=== PATIENT | male | born 1950 | race Caucasian/White ===

== ENCOUNTER 2016-03-29 09:44 | Inpatient (IN) | payer MEDICARE, OTHER ==
[~2016-03-29] VITALS: Ht 162.6 cm; Wt 78.0 kg
[~2016-03-29 09:44] MED LIST: BUPR300T48 PO; PARO30TA48 PO; QUET300T13 PO
[2016-03-29] MEDS ORDERED: ONDANSETRON (ODT) 4 MG TAB ODT STA (15:49)
[2016-03-29] MEDS ORDERED: OXYCODONE/ACETAMINOPHEN (5/325) TAB PO ONE (16:00)
--- NOTE | 2016-03-29 16:38 | RADRPT ---
PROCEDURE: XR Left Shoulder. CLINICAL INDICATION: Trauma due to a fall. Left shoulder pain. TECHNIQUE: 3 views. Frontal internal rotation and frontal external rotation. Scapular Y-view. COMPARISON: Images of the right shoulder dated 09/02/2015 which demonstrated a anterior inferior d islocation. FINDINGS: There is no acute fracture. There is grade II acromioclavicular joint separation. There may be a H ill-Sachs deformity of the humeral head indicating prior dislocation. There is no acute dislocation . The articular surfaces are otherwise intact. The soft tissues are unremarkable. There is no lytic or blastic lesion. There is no radiopaque foreign body. IMPRESSION: 1. Grade II acromioclavicular joint separation. 2. Possible [place]-Sachs deformity. 3. Otherwise unremarkable images of the left shoulder. RPTAT: QQ .Jordin Mendoza MD, Date Time Electronically viewed and signed by .Jordin Mendoza MD, on 03/29/2016 16:38 .R/
--- NOTE | 2016-03-29 17:03 | RADRPT ---
PROCEDURE: CT Brain without contrast. CLINICAL INDICATION: Trauma due to a fall. Headache. TECHNIQUE: A CT of the brain without contrast was performed utilizing axial sections from the skul l base through the vertex. The patient was scanned without intravenous contrast enhancement. Sagitta l and coronal reformatted images were obtained using the data from the axial images. Total exam DLP is 720.23 mGy-cm. CTDIvol is 44.33 mGy. One or more of the following dose reduction techniques we re used: Automated exposure control, adjustment of the mA and/or kV according to patient size, use o f iterative reconstruction technique. COMPARISON: Noncontrast CT scan of the brain dated 02/03/2016. FINDINGS: There is normal thompson-white matter differentiation. There is enlargement of the ventricles and subarachnoid spaces consistent with atrophy. There is decreased attenuation of the periventricular white matter consistent with microangiopathic ischemic change. There is a small old infarct in the left cerebellar hemisphere posteriorly, unchang ed. There is no evidence of recent infarct. There is no intracranial hemorrhage or space-occupying lesion. There are vascular calcifications consistent with atherosclerosis. There is no skull fracture or lytic lesion. There is opacification bilaterally in the maxillary sin uses. There may be fractures of the medial wolf of the orbits, unchanged. IMPRESSION: 1. Atrophy. 2. Microangiopathic ischemic change. 3. Atherosclerosis. 4. Old left cerebellar hemisphere infarct, unchanged. 5. Opacification in the maxillary sinuses bilaterally. 6. Old defects of the bilateral medial wall of the orbits. 7. No intracranial hemorrhage. 8. Otherwise unremarkable noncontrast CT scan of the brain. RPTAT: QQ .Jordin Mendoza MD, Date Time Electronically viewed and signed by .Jordin Mendoza MD, on 03/29/2016 17:02 .R/
--- NOTE | 2016-03-29 17:04 | RADRPT ---
PROCEDURE: CT Cervical Spine without contrast. CLINICAL INDICATION: Fall, pain TECHNIQUE: Multiple axial cuts through the cervical spine with coronal and sagittal reformats were obtained without contrast. The calculated radiation dose measures 475 mGy centimeters. The CTDI malick sures 22 mGy COMPARISON: No prior studies are available for comparison. FINDINGS: There is a normal cervical lordosis. There is no evidence of subluxation. There is normal height of the vertebral bodies. There is a normal cervical lordosis. There is mild retrolisthesis at C3-C4, 2 mm, which appears degenerative. There is moderate to severe disk space narrowing at C6-C7, and mo derate disk space narrowing at C3-C4. Vertebral body heights are maintained. There is no evidence for acute fracture. The atlantoaxial articulation displays moderate degenerative change.. There is normal craniocervica l alignment. C2-3: There is a minimal broad-based disk protrusion. There is moderate bilateral facet hypertrophy . There is minimal central canal stenosis. There is minimal bilateral bony foraminal stenosis.. C3-4: There is a mild retrolisthesis. There is bilateral uncovertebral hypertrophy. There is moder ate bilateral facet hypertrophy. There is a minimal disk osteophyte complex. There is moderate to severe appearing central canal stenosis with AP canal diameter measuring 7 mm. There is moderate to severe bilateral bony foraminal stenosis.. C4-5: There is a minimal disk osteophyte complex and bilateral uncovertebral hypertrophy. There is severe bilateral facet hypertrophy. There is mild ligamentum flavum buckling. There is mild centra l canal stenosis with AP canal diameter measuring 8 mm. There is severe bilateral foraminal stenosi s.. C5-6: There is a mild broad-based disk protrusion. There is right uncovertebral hypertrophy. There is moderate to severe bilateral facet hypertrophy. There is no bony central canal stenosis. There is mild to moderate left and moderate to severe right bony foraminal stenosis.. C6-7: There is a mild disk osteophyte complex, 3 mm. There is mild to moderate bilateral facet hyp ertrophy. There is no bony central canal stenosis. There is minimal bilateral bony foraminal steno sis.. C7-T1: There is no gross disk abnormality. There is moderate bilateral facet hypertrophy. There is no bony central canal stenosis. There is minimal bilateral bony foraminal stenosis.. There is no abnormal paravertebral soft tissue mass. IMPRESSION: 1. Mild retrolisthesis at C3-C4, 2 mm, which appears degenerative. 2. No visualized acute fracture or dislocation. 3. Mild disk osteophyte complexes at C5-C6 and C6-C7. Minimal disk osteophyte complexes at C2-C3 t hrough C4-C5. 4. Bony central canal stenosis, which appears moderate to severe at C3-C4, related to listhesis and disk osteophyte complex. Mild appearing central canal stenosis at C4-C5. 5. Uncovertebral hypertrophy as noted from C3-C4 through C5-C6. Multilevel moderate and severe facet hypertrophy. Associated neural foraminal stenosis, with moderate to severe and severe involvement as noted from C3-C4 through C5-C6. RPTAT: DD .Fito Evans MD, Date Time Electronically viewed and signed by .Fito Evans MD, on 03/29/2016 17:03 .T/
--- NOTE | 2016-03-29 17:51 | ERA ---
ER Documentation Chief Complaint Date/Time DATE: 03/29/16 TIME: 17:44 Chief Complaint bilateral hand swelling from a fall about 1 week. no deformity HPI Patient is a 66-year-old male who fell out of his wheelchair earlier today. He states he hit his head and is having some head pain as well as left shoulder pain. He is wheelchair-bound from a prior stroke. He is not sure if he lost consciousness when he hit his head. He denies any chest pain or shortness of breath. Denies any abdominal pain or flank or back pain. Denies any bruising lacerations or abrasions. He denies any recent illnesses such as fever, coughing, or congestion. Of note the patient is homeless. ROS All systems reviewed and are negative except as per history of present illness. Medications Home Meds Reported Medications Paroxetine Hcl* (Paxil*) 30 Mg Tablet, 30 MG PO HS, TAB 12/16/13 Quetiapine Fumarate* (Seroquel*) 300 Mg Tablet, 300 MG PO HS, TAB 12/16/13 Discontinued Reported Medications Bupropion Hcl* (Wellbutrin XL*) 300 Mg Tab.sr.24h, 300 MG PO QAM, TAB.SA 12/16/13 Allergies Allergies: Coded Allergies: No Known Allergy (Verified , 03/29/16) PMhx/Soc History of Surgery: Yes (abd from"accident," L shoulder, "broke both feet") Anesthesia Reaction: No Hx Neurological Disorder: No Hx Respiratory Disorders: No Hx Cardiac Disorders: Yes (htn) Hx Psychiatric Problems: Yes (bipolar, DEPRESSION, HEARS VOICES (schizophrenia) , anxiety) Hx Miscellaneous Medical Probl: No Hx Alcohol Use: Yes ("3 beers everyday") Hx Substance Use: Yes (MARIJUANA - 1 WEEK AGO, COCAINE - LONG TIME AGO) Hx Tobacco Use: Yes Smoking Status: Current every day smoker FmHx Family History: No diabetes Physical Exam Vitals Vital Signs Date Time Temp Pulse Resp B/P Pulse Ox O2 Delivery O2 Flow Rate FiO2 03/29/16 09:47 98.5 88 20 135/78 95 Physical Exam Const: Well-developed well-nourished male lying on the bed in no acute distress, unkempt, appears chronically ill Head: Atraumatic normocephalic Eyes: Normal Conjunctiva ENT: Normal External Ears, Nose and Mouth. Neck: Full range of motion..~ No meningismus. Resp: Clear to auscultation bilaterally Cardio: Regular rate and rhythm, no murmurs Abd: Soft, non tender, non distended. Normal bowel sounds Skin: No petechiae or rashes Back: No midline or flank tenderness Ext: No cyanosis, or edema, patient has tenderness to palpation of the left proximal humerus with decreased range of motion, no obvious bony deformity noted Neur: Awake and alert oriented 3, patient has notable weakness of the left upper extremity which appears to be from a prior stroke, GCS equals 15 Psych: Normal Mood and Affect Results 24 hrs Current Medications Medications (Trade) Dose Ordered Sig/Minnie Route PRN Reason Start Time Stop Time Status Last Admin Dose Admin Oxycodone/ Acetaminophen (Percocet (5/ 325)) 2 tab ONCE ONCE PO 03/29/16 16:00 03/29/16 16:01 DC 03/29/16 16:00 Ondansetron HCl (Zofran Odt) 4 mg ONCE STAT ODT 03/29/16 15:49 03/29/16 15:51 DC 03/29/16 15:49 Departure Diagnosis: Primary Impression: Fall Qualified Code: W19.XXXA - Fall, initial encounter Additional Impressions: Acromioclavicular joint separation, type 2 Qualified Code: S43.102A - Acromioclavicular joint separation, type 2, left, initial encounter CVA, old, hemiparesis Condition: DORIS Gifford Mar 29, 2016 17:51
[2016-03-29] MEDS ORDERED: hydrALAzine 20 MG INJ IV PRN (18:30)
[2016-03-29] MEDS ORDERED: NA PHOSPHATE/BIPHOS 133 ML ENEMA PR PRN (18:30)
[2016-03-29] MEDS ORDERED: ACETAMINOPHEN 325 MG TAB PO PRN (18:30)
[2016-03-29] MEDS ORDERED: LORAZEPAM 2 MG INJ IV PRN (18:30)
[2016-03-29] MEDS ORDERED: DOCUSATE SODIUM 100 MG CAP PO PRN (18:30)
[2016-03-29] MEDS ORDERED: ONDANSETRON 4 MG INJ IV PRN (18:30)
[2016-03-29] MEDS ORDERED: NACL 0.9% 3 ML SYG IV SCH (18:30)
[2016-03-29] MEDS ORDERED: NITROGLYCERIN (SL) 0.4 MG TAB SL PRN (18:30)
[2016-03-29] MEDS ORDERED: MAGNESIUM HYDROXIDE 30ML CUP PO PRN (18:30)
[2016-03-29] MEDS ORDERED: ALBUTEROL/IPRATROPIUM (NEB) 3 ML AMP HHN PRN (18:30)
[2016-03-29 20:13] VITALS: TEMP 98.2
[2016-03-29] MEDS ORDERED: HEPARIN 5,000 UNIT/0.5 ML SYG SC SCH (21:00)
[2016-03-29] MEDS: QUETIAPINE 100 MG TAB PO SCH (21:17)
[2016-03-29] MEDS: HYDROCODONE/APAP (5/325) TAB PO PRN (21:17)
[2016-03-29 21:30] VITALS: BP 124/59; Ht 162.6 cm; Wt 78.0 kg
[2016-03-29] MEDS: SOD CHLORIDE 0.45% 1,000 ML IV SCH (22:00)
[2016-03-29] MEDS: PAROXETINE 10 MG TAB PO SCH (22:38)
[2016-03-30 06:33] LABS: CHOL/HDL RATIO 5.7 RATIO
[2016-03-30 06:36] LABS: BASOPHILS % 0.3 % (0.0-2.0); EOSINOPHILS # 0.1 10^3/ul (0.0-0.5); EOSINOPHILS % 1.2 % (0.0-7.0); HEMATOCRIT 34.8 % (42.0-52.0); HEMOGLOBIN 11.8 g/dl (14.0-18.0); LYMPHOCYTES % 11.1 % (15.0-51.0); MEAN CORPUSCULAR HEMOGLOBIN 31.2 pg (29.0-33.0); MEAN CORPUSCULAR HGB CONC 33.8 g/dl (32.0-37.0); MEAN CORPUSCULAR VOLUME 92.3 fl (82.0-101.0); MEAN PLATELET VOLUME 9.7 fl (7.4-10.4); NEUTROPHIL # 7.2 10^3/ul (1.6-7.5); NEUTROPHILS % 76.4 % (39.0-77.0); PLATELET COUNT 235 10^3/UL (140-440); RED BLOOD COUNT 3.77 10^6/ul (4.70-6.10); RED CELL DISTRIBUTION WIDTH 15.2 % (11.5-14.5); UNCORRECTED WBC 9.4 10^3/ul (4.8-10.8); WHITE BLOOD COUNT 9.4 10^3/ul (4.8-10.8)
[2016-03-30 06:43] LABS: CONDITION 1; LH ANALYZER COMMENTS 1
[2016-03-30 07:12] LABS: THYROID STIMULATING HORMONE 1.62 MIU/L (0.465-4.680)
[2016-03-30] MEDS: SOD CHLORIDE 0.45% 1,000 ML IV SCH ×2 (07:31→20:51)
[2016-03-30] MEDS: PANTOPRAZOLE 40 MG INJ IV SCH (07:34)
[2016-03-30 07:40] LABS: CREATININE 0.92 mg/dl (0.61-1.24)
[2016-03-30 07:41] LABS: CALCIUM 7.9 mg/dl (8.4-10.2); MAGNESIUM 1.8 mg/dl (1.7-2.5); PHOSPHORUS 5.8 mg/dl (2.5-4.9)
[2016-03-30] MEDS: CHLORDIAZEPOXIDE 5 MG CAP PO SCH ×3 (10:11→21:20)
[2016-03-30] MEDS: MULTIVITAMINS 10 ML, THIAMINE 100 MG, FOLIC ACID 1 MG in SOD CHLORIDE 0.9% 1,000 ML IVPB SCH (10:14)
--- NOTE | 2016-03-30 13:56 | HP ---
DATE OF ADMISSION: 03/29/2016 TIME: 7:45 a.m. CHIEF COMPLAINT: Fall. 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 The patient presents with a fall from his wheelchair. He stat es that he hit his head and also landed on his left shoulder. The patient was not sure if he lost co nsciousness when he hit his head. He has no other complaints at this time. He states that his last drink was yesterday. He says he lives in a [place] and that he is wheelchair bound. PAST MEDICAL HISTORY: As per HPI. HOME MEDICATIONS: 1. Paxil. 2. Seroquel. ALLERGIES: NO KNOWN DRUG ALLERGIES. FAMILY HISTORY: Denies. SOCIAL HISTORY: The patient drinks daily, drinks approximately 3 beers daily. He does use marijuan a and has used cocaine in the past. He is a daily smoker. REVIEW OF SYSTEMS: A 12-point review of systems is difficult to obtain as the patient is confused, otherwise negative except that discussed in the HPI. PHYSICAL EXAMINATION: VITAL SIGNS: Temperature is 98.2, pulse 105, respiratory rate is 20, BP is 124/59, ____% on room ai r. GENERAL: No acute distress, alert. He is oriented to his name, but not to where exactly he is and what year it is. HEENT: Normocephalic, atraumatic. LUNGS: Clear to auscultation. CARDIOVASCULAR: Regular rate and rhythm. ABDOMEN: Nondistended, nontender, soft. EXTREMITIES: No clubbing, cyanosis, or edema. LABORATORIES: White count 9.4, hemoglobin 11.8, platelets are 235. Chemistry within normal limits except for potassium of 3.0, phosphorus level elevated at 5.8. DIAGNOSTICS: Shoulder x-ray shows grade II, AC joint separation, possible [place]-Sachs deformity, ot herwise unremarkable images of the left shoulder. Cervical spine CT shows mild retrolisthesis at C3-C4 which appears degenerative. No visualized acut e fracture or dislocation, mild distal ____ C5-C6, C6-C7. Bony central canal stenosis appears moder ate to severe at C3-C4. Hypertrophy is noted at C3-C4, C4-C5, and C5-C6, associated neural foramina l stenosis and moderate to severe ____noted from C3 to C4 and C5 through C6. CT brain shows atrophy, microangiopathic ischemic changes, atherosclerosis, old left cerebellar and hemisphere infarct, unchanged; opacification of maxillary sinuses, old defects in the bilateral medi al wall of the orbits, no intracranial hemorrhage. Otherwise, unremarkable CT of the brain. ASSESSMENT AND PLAN: 1. Fall with acromioclavicular joint separation. The patient had a sling placed in the ER. The pat tyra's fall is likely secondary to his alcohol abuse and his history of subdural hematomas. There i s no acute ____on CT of the brain. The patient will need a social work consult and case reviewer irina bowling for possible placement. 2. Alcohol abuse. The patient's last drink was yesterday. We will give the patient a banana bag, L ibrium and Ativan p.r.n. 3. Homelessness. Case management consultation. 4. History of bipolar disorder and schizophrenia. 5. History of subdural hematomas from falls. Subdural hematoma was noted on CT brain at this time. 6. Prophylaxis. SCDs. Dictated By: MARIA E BABIN MD BS/TALYA Conf#: [id number] DID#: [id number]
[2016-03-30] MEDS ORDERED: POTASSIUM CHLORIDE 250 ML IVPB ONE (14:00)
[2016-03-30] MEDS: HYDROCODONE/APAP (5/325) TAB PO PRN ×2 (14:39→21:21)
[2016-03-30] MEDS: PAROXETINE 10 MG TAB PO SCH (21:20)
[2016-03-30] MEDS: QUETIAPINE 100 MG TAB PO SCH (21:21)
[2016-03-31] MEDS: LORAZEPAM 2 MG INJ IV PRN ×2 (03:41→15:02)
[2016-03-31] MEDS: PANTOPRAZOLE 40 MG INJ IV SCH (05:24)
[2016-03-31] MEDS: SOD CHLORIDE 0.45% 1,000 ML IV SCH ×2 (06:57→23:31)
[2016-03-31 08:20] VITALS: BP 163/98; PULSE 116; RESP 18
[2016-03-31 08:20] LABS: BASOPHILS % 0.3 % (0.0-2.0); EOSINOPHILS # 0.1 10^3/ul (0.0-0.5); EOSINOPHILS % 2.5 % (0.0-7.0); HEMATOCRIT 32.8 % (42.0-52.0); HEMOGLOBIN 11.2 g/dl (14.0-18.0); LYMPHOCYTES # 1.3 10^3/ul (0.8-2.9); LYMPHOCYTES % 23.2 % (15.0-51.0); MEAN CORPUSCULAR HEMOGLOBIN 31.1 pg (29.0-33.0); MEAN CORPUSCULAR HGB CONC 34.3 g/dl (32.0-37.0); MEAN CORPUSCULAR VOLUME 90.7 fl (82.0-101.0); MEAN PLATELET VOLUME 8.7 fl (7.4-10.4); MONOCYTE # 0.7 10^3/ul (0.3-0.9); MONOCYTES % 12.7 % (0.0-11.0); NEUTROPHIL # 3.4 10^3/ul (1.6-7.5); NEUTROPHILS % 61.3 % (39.0-77.0); PLATELET COUNT 223 10^3/UL (140-440); RED BLOOD COUNT 3.61 10^6/ul (4.70-6.10); RED CELL DISTRIBUTION WIDTH 15.3 % (11.5-14.5); UNCORRECTED WBC 5.5 10^3/ul (4.8-10.8); WHITE BLOOD COUNT 5.5 10^3/ul (4.8-10.8)
[2016-03-31] MEDS: MULTIVITAMINS 10 ML, THIAMINE 100 MG, FOLIC ACID 1 MG in SOD CHLORIDE 0.9% 1,000 ML IVPB SCH (08:21)
[2016-03-31] MEDS: CHLORDIAZEPOXIDE 5 MG CAP PO SCH ×3 (08:22→21:10)
[2016-03-31 08:24] LABS: POTASSIUM 3.3 mmol/L (3.5-5.1)
[2016-03-31 08:27] LABS: CONDITION 1; CREATININE 0.55 mg/dl (0.61-1.24); LH ANALYZER COMMENTS 1
--- NOTE | 2016-03-31 10:23 | PN ---
DATE: 03/30/2016 SUBJECTIVE: No acute events overnight. The patient presently eating. OBJECTIVE VITAL SIGNS: Stable. GENERAL: The patient is sitting up in bed eating, in no acute distress. HEENT: Pupils equal, round, reactive to light. Extraocular muscles intact. NECK: Supple, no thyromegaly. LUNGS: Clear to auscultation bilaterally. CARDIOVASCULAR: S1, S2 heard, no rubs or gallops. ABDOMEN: Soft, nontender, nondistended. Normal bowel sounds. No rebound or guarding. MUSCULOSKELETAL: His left upper extremity: Still tenderness to palpation in the left proximal steffen [place], decreased range of motion of the left upper extremity. A sling is in place. No lower extremit y edema bilaterally. NEUROLOGIC: No focal deficits. LABORATORY DATA: His basic metabolic panel is normal except his potassium is a little low at 3.0. CBC is normal. ASSESSMENT AND PLAN: This is a 66-year-old male with prior history of hypertension, stroke, depress ion and possible bipolar disorder who fell out of a wheelchair yesterday, status post fall with left upper extremity AC joint grade II separation, now with sling placement. 1. Left shoulder pain, again secondary to fall. He has got an AC joint separation, type II. We wi ll continue to monitor for now. Continue brace. Consider orthopedic consult, although does not messi ear patient need any surgical intervention at this time. Continue pain control medications as well. 2. History of old stroke. Again, head CT was negative after patient suffered a fall. Continue to monitor for now. There was an old left cerebellar hemispheric infarct noted, but again no acute fin dings. 3. Psychiatric history. Again, history of possible schizophrenia and bipolar disorder. Continue t o monitor for now. The patient does take Seroquel and Paxil at home. We will continue those for no w. 4. History of questionable ethanol abuse in the past. No signs of any active withdrawal, but he is homeless. We will check an ethanol and drug screen level. Put him on low-dose Librium for now wit h banana bag. Continue to monitor for signs of withdrawal. 5. Gastrointestinal prophylaxis Proton pump inhibitor. 6. Deep venous thrombosis prophylaxis. He is on sequential compression devices. We will continue to follow. Dictated By: GERBER HERNANDEZ Conf#: [id number] DID#: [id number]
[2016-03-31] MEDS ORDERED: POTASSIUM CHLORIDE 250 ML IVPB ONE (10:30)
--- NOTE | 2016-03-31 10:38 | PN ---
Date/Time of Note Date/Time of Note DATE: 03/31/16 TIME: 10:36 Assessment/Plan VTE Prophylaxis VTE Prophylaxis Intervention: SCD's Lines/Catheters IV Catheter Type (from Nrs): Peripheral IV Assessment/Plan Chief Complaint/Hosp Course ASSESSMENT AND PLAN: 66-year-old male with prior history of hypertension, stroke, depression and possible bipolar disorder who fell out of a wheelchair yesterday, status post fall with left upper extremity AC joint grade II separation, now with sling placement. 1. Left shoulder pain - again secondary to fall. He has got an AC joint separation, type II. - continue to monitor for now, continue brace. - will consult orthopedic team as well, although does not appear patient need any surgical intervention at this time. - Continue pain control medications as well. 2. History of old stroke. Again, head CT was negative after patient suffered a fall. There was an old left cerebellar hemispheric infarct noted, but again no acute findings. - Continue to monitor for now. 3. Psychiatric history. Again, history of possible schizophrenia and bipolar disorder. - Continue Seroquel and Paxil meds. We will continue those for now. 4. History of questionable ethanol abuse in the past - shwoing possible signs of withdrawal now. - f/u ethanol and drug screen level. - continue low-dose Librium for now with banana bag. - Continue to monitor for signs of withdrawal. 5. Gastrointestinal prophylaxis Proton pump inhibitor. 6. Deep venous thrombosis prophylaxis. He is on sequential compression devices. We will continue to follow. Problems: Subjective 24 Hr Interval Summary Free Text/Dictation Pt more agitated yesterday, 1:[address] now[address] Exam/Review of Systems Vital Signs Vitals Vital Signs Date Time Temp Pulse Resp B/P Pulse Ox O2 Delivery O2 Flow Rate FiO2 03/31/16 08:20 98.7 116 18 163/98 95 Room Air Intake and Output 03/30/16 03/30/16 03/31/16 15:00 23:00 07:00 Intake Total 500 ml 1750 ml 900 ml Output Total 300 ml 1000 ml Balance 500 ml 1450 ml -100 ml Exam GENERAL: The patient is sleeping, in no acute distress presently. HEENT: Pupils equal, round, reactive to light. Extraocular muscles intact. NECK: Supple, no thyromegaly. LUNGS: Clear to auscultation bilaterally. CARDIOVASCULAR: S1, S2 heard, no rubs or gallops. ABDOMEN: Soft, nontender, nondistended. Normal bowel sounds. No rebound or guarding. MUSCULOSKELETAL: His left upper extremity: Still tenderness to palpation in the left proximal humerus, decreased range of motion of the left upper extremity. A sling is in place. No lower extremity edema bilaterally. NEUROLOGIC: No focal deficits. Results Result Diagram: 03/31/16 0758 03/31/16 0758 Results 24 hrs Laboratory Tests Test 03/31/16 07:58 Anion Gap 13 Basophils # 0.0 Basophils % 0.3 Blood Morphology Comment Blood Urea Nitrogen 9 Calcium Level 8.0 L Carbon Dioxide Level 27 Chloride Level 103 Creatinine 0.55 L Eosinophils # 0.1 Eosinophils % 2.5 Glucose Level 100 Hematocrit 32.8 L Hemoglobin 11.2 L Lymphocytes # 1.3 Lymphocytes % 23.2 Mean Corpuscular Hemoglobin 31.1 Mean Corpuscular Hemoglobin Concent 34.3 Mean Corpuscular Volume 90.7 Mean Platelet Volume 8.7 Monocytes # 0.7 Monocytes % 12.7 H Neutrophils # 3.4 Neutrophils % 61.3 Nucleated Red Blood Cells # 0.0 Nucleated Red Blood Cells % 0.0 Platelet Count 223 Potassium Level 3.3 L Red Blood Count 3.61 L Red Cell Distribution Width 15.3 H Sodium Level 140 White Blood Count 5.5 # Medications Medications Current Medications Ondansetron HCl (Zofran Inj) 4 mg Q6H PRN IV NAUSEA AND/OR VOMITING; Start 03/29 at 18:30 Acetaminophen (Tylenol Tab) 650 mg Q6H PRN PO PAIN LEVEL 1-3 OR FEVER; Start at 18:30 Acetaminophen/ Hydrocodone Bitart ([place] (5/325)) 1 tab Q6H PRN PO MODERATE PAIN LEVEL 4-6 Last administered on 03/30/16t 21:21; Admin Dose 1 TAB; Start 03/29 at 18:30 Morphine Sulfate (morphine) 2 mg Q4H PRN IV SEVERE PAIN LEVEL 7-10; Start at 18:30 Docusate Sodium (Colace) 100 mg Q12H PRN PO CONSTIPATION; Start 03/29/16 at 18: 30 Magnesium Hydroxide (Milk Of Mag) 30 ml DAILY PRN PO CONSTIPATION; Start at 18:30 Sodium Biphosphate/ Sodium Phosphate (Fleet Enema) 133 ml DAILY PRN [place] CONSTIPATION; Start 03/29/16 at 18:30 Pantoprazole 40 mg 40 mg DAILY@06 IV Last administered on 03/31/16 05:24; Admin Dose 40 MG; Start 03/30/16 at 06:00 Sodium Chloride (1/2 NS) 1,000 ml @ 75 mls/hr [id number] IV Last administered on 03/31/16 06:57; Admin Dose 75 MLS/HR; Start 03/29/16 at 18:11 Hydralazine HCl (Apresoline) 10 mg Q6H PRN IV ELEVATED BLOOD PRESSURE; Start at 18:30 Clonidine (Catapres) 0.1 mg Q6H PRN PO ELEVATED BLOOD PRESSURE; Start 03/29/16 at 18:30 Nitroglycerin (Nitroglycerin (Sl Tab) 0.4 Mg) 1 tab Q5M PRN SL ANGINA; Start at 18:30 Paroxetine HCl (Paxil) 30 mg HS PO Last administered on 03/30/16 21:20; Admin Dose 30 MG; Start 03/29/16 at 21:00 Quetiapine Fumarate (Seroquel) 300 mg HS PO Last administered on 03/30/16 21:21 ; Admin Dose 300 MG; Start 03/29/16 at 21:00 Lorazepam (Ativan) 1 mg Q4H PRN IV CONTROL WITHDRAWAL SYMPTOMS Last administered on 03/31/16 03:41; Admin Dose 1 MG; Start 03/30/16 at 09:00 Chlordiazepoxide 10 mg 10 mg TID PO Last administered on 03/31/16 08:22; Admin Dose 10 MG; Start 03/30/16 at 09:00 Multivitamins 10 ml/Thiamine HCl 100 mg/Folic Acid 1 mg/Sodium Chloride 1,011.2 ml @ 125 mls/ hr DAILY@09 IVPB Last administered on 03/31/16 08:21; Admin Dose 125 MLS/HR; Start 03/30/16 at 10:00; Stop 04/01/16 at 17:06 Potassium Chloride (KCl 40 MEQ/250 ML NS) 250 ml @ 62.5 mls/hr ONCE ONCE IVPB ; Start 03/31/16 at 10:30; Stop 03/31/16 at 14:29 GERBER JOSEPH Mar 31, 2016 10:38
[2016-03-31] MEDS ORDERED: POTASSIUM CHLORIDE (SR) 20 MEQ TAB PO STA (10:39)
[2016-03-31] MEDS: HYDROCODONE/APAP (5/325) TAB PO PRN ×2 (11:42→21:19)
[2016-03-31] MEDS: morphine 2 MG INJ IV PRN (17:17)
[2016-03-31 19:47] VITALS: BP 196/96; RESP 20
[2016-03-31] MEDS: PAROXETINE 10 MG TAB PO SCH (21:10)
[2016-03-31] MEDS: QUETIAPINE 100 MG TAB PO SCH (21:10)
[2016-03-31 21:28] VITALS: BP 181/101; PULSE 113
[2016-03-31 21:45] VITALS: BP 168/89; RESP 20
[2016-03-31 22:00] VITALS: BP 164/83; RESP 20
[2016-04-01] MEDS: SOD CHLORIDE 0.45% 1,000 ML IV SCH (03:25)
[2016-04-01] MEDS: PANTOPRAZOLE 40 MG INJ IV SCH (05:40)
[2016-04-01 05:58] LABS: BASOPHILS % 0.4 % (0.0-2.0); EOSINOPHILS # 0.1 10^3/ul (0.0-0.5); EOSINOPHILS % 2.5 % (0.0-7.0); HEMATOCRIT 37.2 % (42.0-52.0); HEMOGLOBIN 12.4 g/dl (14.0-18.0); LYMPHOCYTES # 1.5 10^3/ul (0.8-2.9); LYMPHOCYTES % 26.6 % (15.0-51.0); MEAN CORPUSCULAR HEMOGLOBIN 30.8 pg (29.0-33.0); MEAN CORPUSCULAR HGB CONC 33.4 g/dl (32.0-37.0); MEAN CORPUSCULAR VOLUME 92.1 fl (82.0-101.0); MONOCYTE # 0.7 10^3/ul (0.3-0.9); MONOCYTES % 12.7 % (0.0-11.0); NEUTROPHIL # 3.3 10^3/ul (1.6-7.5); NEUTROPHILS % 57.8 % (39.0-77.0); PLATELET COUNT 296 10^3/UL (140-440); RED BLOOD COUNT 4.04 10^6/ul (4.70-6.10); RED CELL DISTRIBUTION WIDTH 15.4 % (11.5-14.5); UNCORRECTED WBC 5.6 10^3/ul (4.8-10.8); WHITE BLOOD COUNT 5.6 10^3/ul (4.8-10.8)
[2016-04-01 06:01] LABS: CONDITION 1; LH ANALYZER COMMENTS 1
[2016-04-01 06:20] LABS: POTASSIUM 3.5 mmol/L (3.5-5.1)
[2016-04-01 06:22] LABS: CREATININE 0.49 mg/dl (0.61-1.24); MAGNESIUM 1.6 mg/dl (1.7-2.5); PHOSPHORUS 3.9 mg/dl (2.5-4.9)
[2016-04-01 06:23] LABS: CALCIUM 8.2 mg/dl (8.4-10.2)
[2016-04-01] MEDS: MULTIVITAMINS 10 ML, THIAMINE 100 MG, FOLIC ACID 1 MG in SOD CHLORIDE 0.9% 1,000 ML IVPB SCH (09:06)
[2016-04-01] MEDS: CHLORDIAZEPOXIDE 5 MG CAP PO SCH ×3 (11:23→20:27)
[2016-04-01] MEDS: morphine 2 MG INJ IV PRN (16:31)
--- NOTE | 2016-04-01 19:11 | OPR ---
DATE OF OPERATION: 04/01/2016 CHIEF COMPLAINT: Left shoulder pain. HISTORY: The patient is a 66-year-old male who fell from his wheelchair, left shoulder pain. Pain, swelling noted in the left shoulder, difficulty raising the hand. PHYSICAL EXAMINATION: On examination, skin intact. Neurovascular status intact. Compartments are soft. X-rays show separation of the AC joint on the left with no apparent fracture of the shoulder or disl ocation. Patient will be managed conservatively. Ice and an arm sling. Pain management. No further evaluat ion is anticipated. A short course of physical therapy may be necessary in the next several weeks. I will be happry to see the patient again upon request. Dictated By: MON[place] CHUNG/TALYA Conf#: [id number] DID#: [id number]
--- NOTE | 2016-04-01 19:24 | PN ---
Date/Time of Note Date/Time of Note DATE: 04/01/16 TIME: 19:20 Assessment/Plan VTE Prophylaxis VTE Prophylaxis Intervention: SCD's Lines/Catheters IV Catheter Type (from Nrs): Peripheral IV Urinary Cath still in place: No Assessment/Plan Assessment/Plan 66-year-old male with prior history of hypertension, stroke, depression and possible bipolar disorder who fell out of a wheelchair yesterday, status post fall with left upper extremity AC joint grade II separation, now with sling placement. 1. Left shoulder pain - again secondary to fall. He has got an AC joint separation, type II. - continue to monitor for now, continue brace. - will consult orthopedic team as well, although does not appear patient need any surgical intervention at this time. - Continue pain control medications as well. 2. History of old stroke. Again, head CT was negative after patient suffered a fall. There was an old left cerebellar hemispheric infarct noted, but again no acute findings. - Continue to monitor for now. 3. Psychiatric history. Again, history of possible schizophrenia and bipolar disorder. - Continue Seroquel and Paxil meds. We will continue those for now. 4. History of questionable ethanol abuse in the past - showing possible signs of withdrawal now. - continue low-dose Librium for now with banana bag. - Continue to monitor for signs of withdrawal. 5. Gastrointestinal prophylaxis Proton pump inhibitor. 6. Deep venous thrombosis prophylaxis. He is on sequential compression devices. We will continue to follow. Dispo: Wean sitter, NH placement when off sitter / patient reports he lives in a [facility]. / cont supportive care. Subjective 24 Hr Interval Summary Free Text/Dictation Patient seen and examined. c/o shoulder pain still mildly confused Exam/Review of Systems Vital Signs Vitals Vital Signs Date Time Temp Pulse Resp B/P Pulse Ox O2 Delivery O2 Flow Rate FiO2 03/31/16 22:00 97.7 121 20 164/83 93 03/31/16 08:20 Room Air Intake and Output 03/31/16 03/31/16 04/01/16 15:00 23:00 07:00 Intake Total 3840 ml 660 ml Output Total 1550 ml 2500 ml Balance 2290 ml -1840 ml Exam GENERAL: The patient is sleeping, in no acute distress presently. HEENT: Pupils equal, round, reactive to light. Extraocular muscles intact. NECK: Supple, no thyromegaly. LUNGS: Clear to auscultation bilaterally. CARDIOVASCULAR: S1, S2 heard, no rubs or gallops. ABDOMEN: Soft, nontender, nondistended. Normal bowel sounds. No rebound or guarding. MUSCULOSKELETAL: His left upper extremity: Still tenderness to palpation in the left proximal humerus, decreased range of motion of the left upper extremity. A sling is in place. No lower extremity edema bilaterally. NEUROLOGIC: No focal deficits. Results Result Diagram: 04/01/165 04/01/16434 Results 24 hrs Laboratory Tests Test 04/01/16 04:35 Anion Gap 16 Basophils # 0.0 Basophils % 0.4 Blood Morphology Comment Blood Urea Nitrogen 5 L Calcium Level 8.2 L Carbon Dioxide Level 31 Chloride Level 103 Creatinine 0.49 L Eosinophils # 0.1 Eosinophils % 2.5 Glucose Level 112 Hematocrit 37.2 L Hemoglobin 12.4 L Lymphocytes # 1.5 Lymphocytes % 26.6 Magnesium Level 1.6 L Mean Corpuscular Hemoglobin 30.8 Mean Corpuscular Hemoglobin Concent 33.4 Mean Corpuscular Volume 92.1 Mean Platelet Volume 9.0 Monocytes # 0.7 Monocytes % 12.7 H Neutrophils # 3.3 Neutrophils % 57.8 Nucleated Red Blood Cells # 0.0 Nucleated Red Blood Cells % 0.0 Phosphorus Level 3.9 Platelet Count 296 # Potassium Level 3.5 Red Blood Count 4.04 L Red Cell Distribution Width 15.4 H Sodium Level 146 H White Blood Count 5.6 Medications Medications Current Medications Ondansetron HCl (Zofran Inj) 4 mg Q6H PRN IV NAUSEA AND/OR VOMITING; Start 03/29 at 18:30 Acetaminophen (Tylenol Tab) 650 mg Q6H PRN PO PAIN LEVEL 1-3 OR FEVER; Start at 18:30 Acetaminophen/ Hydrocodone Bitart ([place] (5/325)) 1 tab Q6H PRN PO MODERATE PAIN LEVEL 4-6 Last administered on 03/31/16 21:19; Admin Dose 1 TAB; Start 03/29 at 18:30 Morphine Sulfate (morphine) 2 mg Q4H PRN IV SEVERE PAIN LEVEL 7-10 Last administered on 04/01/16 16:31; Admin Dose 2 MG; Start 03/29/16 at 18:30 Docusate Sodium (Colace) 100 mg Q12H PRN PO CONSTIPATION; Start 03/29/16 at 18: 30 Magnesium Hydroxide (Milk Of Mag) 30 ml DAILY PRN PO CONSTIPATION; Start at 18:30 Sodium Biphosphate/ Sodium Phosphate (Fleet Enema) 133 ml DAILY PRN [place] CONSTIPATION; Start 03/29/16 at 18:30 Pantoprazole 40 mg 40 mg DAILY@06 IV Last administered on 04/01/16 05:40; Admin Dose 40 MG; Start 03/30/16 at 06:00 Sodium Chloride (1/2 NS) 1,000 ml @ 75 mls/hr [id number] IV Last administered on 04/01/16 03:25; Admin Dose 75 MLS/HR; Start 03/29/16 at 18:11 Hydralazine HCl (Apresoline) 10 mg Q6H PRN IV ELEVATED BLOOD PRESSURE Last administered on 03/31/16 21:30; Admin Dose 10 MG; Start 03/29/16 at 18:30 Clonidine (Catapres) 0.1 mg Q6H PRN PO ELEVATED BLOOD PRESSURE Last administered on 04/01/16 09:17; Admin Dose 0.1 MG; Start 03/29/16 at 18:30 Nitroglycerin (Nitroglycerin (Sl Tab) 0.4 Mg) 1 tab Q5M PRN SL ANGINA; Start at 18:30 Paroxetine HCl (Paxil) 30 mg HS PO Last administered on 03/31/16 21:10; Admin Dose 30 MG; Start 03/29/16 at 21:00 Quetiapine Fumarate (Seroquel) 300 mg HS PO Last administered on 03/31/16 21:10 ; Admin Dose 300 MG; Start 03/29/16 at 21:00 Lorazepam (Ativan) 1 mg Q4H PRN IV CONTROL WITHDRAWAL SYMPTOMS Last administered on 03/31/16 15:02; Admin Dose 1 MG; Start 03/30/16 at 09:00 Chlordiazepoxide (Librium) 10 mg TID PO Last administered on 04/01/16 16:31; Admin Dose 10 MG; Start 03/30/16 at 09:00 VICENTE HOLDEN Apr 01, 2016 19:24
[2016-04-01] MEDS ORDERED: MAGNESIUM SULFATE 2 GM/50 ML 50 ML IVPB ONE (19:30)
[2016-04-01 19:40] VITALS: BP 158/78; RESP 20
[2016-04-01] MEDS: QUETIAPINE 100 MG TAB PO SCH (20:27)
[2016-04-01] MEDS ORDERED: QUETIAPINE 25 MG TAB PO SCH (21:00)
[2016-04-01] MEDS: PAROXETINE 10 MG TAB PO SCH (21:18)
[2016-04-02] MEDS: PANTOPRAZOLE 40 MG INJ IV SCH (05:52)
[2016-04-02] MEDS: SOD CHLORIDE 0.45% 1,000 ML IV SCH ×2 (06:01→18:24)
[2016-04-02 06:38] LABS: BENZODIAZEPINES Positive (NEGATIVE); CANNABINOIDS Negative (NEGATIVE)
[2016-04-02 06:39] LABS: COCAINE Negative (NEGATIVE)
[2016-04-02 06:41] LABS: OPIATES Positive (NEGATIVE)
[2016-04-02 07:00] LABS: BARBITURATES Negative (NEGATIVE)
[2016-04-02 07:11] VITALS: BP 140/81; RESP 18
[2016-04-02] MEDS: CHLORDIAZEPOXIDE 5 MG CAP PO SCH ×3 (09:41→20:11)
[2016-04-02 11:23] LABS: POTASSIUM 3.8 mmol/L (3.5-5.1)
[2016-04-02 11:26] LABS: CALCIUM 8.5 mg/dl (8.4-10.2); CREATININE 0.49 mg/dl (0.61-1.24)
[2016-04-02] MEDS: morphine 2 MG INJ IV PRN ×2 (12:45→21:07)
[2016-04-02 12:46] LABS: BASOPHILS % 0.5 % (0.0-2.0); EOSINOPHILS # 0.2 10^3/ul (0.0-0.5); EOSINOPHILS % 2.5 % (0.0-7.0); HEMATOCRIT 39.8 % (42.0-52.0); HEMOGLOBIN 13.4 g/dl (14.0-18.0); LYMPHOCYTES # 1.7 10^3/ul (0.8-2.9); LYMPHOCYTES % 27.7 % (15.0-51.0); MEAN CORPUSCULAR HGB CONC 33.7 g/dl (32.0-37.0); MEAN PLATELET VOLUME 8.7 fl (7.4-10.4); MONOCYTE # 0.7 10^3/ul (0.3-0.9); MONOCYTES % 10.7 % (0.0-11.0); NEUTROPHIL # 3.6 10^3/ul (1.6-7.5); NEUTROPHILS % 58.6 % (39.0-77.0); PLATELET COUNT 343 10^3/UL (140-440); RED BLOOD COUNT 4.33 10^6/ul (4.70-6.10); UNCORRECTED WBC 6.1 10^3/ul (4.8-10.8); WHITE BLOOD COUNT 6.1 10^3/ul (4.8-10.8)
[2016-04-02 12:54] LABS: CONDITION 1; LH ANALYZER COMMENTS 1
--- NOTE | 2016-04-02 13:01 | PN ---
Date/Time of Note Date/Time of Note DATE: 04/02/16 TIME: 13:00 Assessment/Plan VTE Prophylaxis VTE Prophylaxis Intervention: SCD's Lines/Catheters [facility] Peripheral IV Urinary Cath still in place: No Assessment/Plan Assessment/Plan 66-year-old male with prior history of hypertension, stroke, depression and possible bipolar disorder who fell out of a wheelchair yesterday, status post fall with left upper extremity AC joint grade II separation, now with sling placement. 1. Left shoulder pain - again secondary to fall. He has got an AC joint separation, type II. - continue to monitor for now, continue brace. - will consult orthopedic team as well, although does not appear patient need any surgical intervention at this time. - Continue pain control medications as well. 2. History of old stroke. Again, head CT was negative after patient suffered a fall. There was an old left cerebellar hemispheric infarct noted, but again no acute findings. - Continue to monitor for now. 3. Psychiatric history. Again, history of possible schizophrenia and bipolar disorder. - Continue Seroquel and Paxil meds. We will continue those for now. 4. History of questionable ethanol abuse in the past - showing possible signs of withdrawal now. - continue low-dose Librium for now with banana bag. - Continue to monitor for signs of withdrawal. 5. Gastrointestinal prophylaxis Proton pump inhibitor. 6. Deep venous thrombosis prophylaxis. He is on sequential compression devices. We will continue to follow. Dispo: Wean sitter, NH placement when off sitter / patient reports he lives in a [facility]. / cont supportive care. Subjective 24 Hr Interval Summary Free Text/Dictation Patient seen and examined. Exam/Review of Systems Vital Signs Vitals Vital Signs Date Time Temp Pulse Resp B/P Pulse Ox O2 Delivery O2 Flow Rate FiO2 04/02/16 07:11 98.2 104 18 140/81 93 03/31/16 08:20 Room Air Intake and Output 04/01/16 04/01/16 04/02/16 15:00 23:00 07:00 Intake Total 120 ml 3925 ml Output Total 600 ml 3400 ml Balance -480 ml 525 ml Exam GENERAL: The patient is sleeping, in no acute distress presently. HEENT: Pupils equal, round, reactive to light. Extraocular muscles intact. NECK: Supple, no thyromegaly. LUNGS: Clear to auscultation bilaterally. CARDIOVASCULAR: S1, S2 heard, no rubs or gallops. ABDOMEN: Soft, nontender, nondistended. Normal bowel sounds. No rebound or guarding. MUSCULOSKELETAL: His left upper extremity: Still tenderness to palpation in the left proximal humerus, decreased range of motion of the left upper extremity. A sling is in place. No lower extremity edema bilaterally. NEUROLOGIC: No focal deficits. Results Result Diagram: 04/02/16 1220 04/02/16 1024 Results 24 hrs Laboratory Tests Test 04/02/16 05:55 04/02/16 10:24 04/02/16 12:20 Urine Amphetamines Screen Negative Urine Barbiturates Negative Urine Benzodiazepines Screen Positive Urine Cannabinoids Negative Urine Cocaine Screen Negative Urine Opiates Screen Positive Anion Gap 14 Blood Urea Nitrogen 7 Calcium Level 8.5 Carbon Dioxide Level 29 Chloride Level 100 Creatinine 0.49 L Glucose Level 129 Potassium Level 3.8 Sodium Level 139 Basophils # 0.0 Basophils % 0.5 Blood Morphology Comment Eosinophils # 0.2 Eosinophils % 2.5 Hematocrit 39.8 L Hemoglobin 13.4 L Lymphocytes # 1.7 Lymphocytes % 27.7 Mean Corpuscular Hemoglobin 31.0 Mean Corpuscular Hemoglobin Concent 33.7 Mean Corpuscular Volume 92.0 Mean Platelet Volume 8.7 Monocytes # 0.7 Monocytes % 10.7 Neutrophils # 3.6 Neutrophils % 58.6 Nucleated Red Blood Cells # 0.0 Nucleated Red Blood Cells % 0.0 Platelet Count 343 Red Blood Count 4.33 L Red Cell Distribution Width 15.0 H White Blood Count 6.1 Medications Medications Current Medications Ondansetron HCl (Zofran Inj) 4 mg Q6H PRN IV NAUSEA AND/OR VOMITING; Start 03/29 at 18:30 Acetaminophen (Tylenol Tab) 650 mg Q6H PRN PO PAIN LEVEL 1-3 OR FEVER; Start at 18:30 Acetaminophen/ Hydrocodone Bitart ([place] (5/325)) 1 tab Q6H PRN PO MODERATE PAIN LEVEL 4-6 Last administered on 03/31/16 21:19; Admin Dose 1 TAB; Start 03/29 at 18:30 Morphine Sulfate (morphine) 2 mg Q4H PRN IV SEVERE PAIN LEVEL 7-10 Last administered on 04/02/16 12:45; Admin Dose 2 MG; Start 03/29/16 at 18:30 Docusate Sodium (Colace) 100 mg Q12H PRN PO CONSTIPATION; Start 03/29/16 at 18: 30 Magnesium Hydroxide (Milk Of Mag) 30 ml DAILY PRN PO CONSTIPATION; Start at 18:30 Sodium Biphosphate/ Sodium Phosphate (Fleet Enema) 133 ml DAILY PRN [place] CONSTIPATION; Start 03/29/16 at 18:30 Pantoprazole 40 mg 40 mg DAILY@06 IV Last administered on 04/02/16 05:52; Admin Dose 40 MG; Start 03/30/16 at 06:00 Sodium Chloride (1/2 NS) 1,000 ml @ 75 mls/hr [id number] IV Last administered on 04/02/16 06:01; Admin Dose 75 MLS/HR; Start 03/29/16 at 18:11 Hydralazine HCl (Apresoline) 10 mg Q6H PRN IV ELEVATED BLOOD PRESSURE Last administered on 03/31/16 21:30; Admin Dose 10 MG; Start 03/29/16 at 18:30 Clonidine (Catapres) 0.1 mg Q6H PRN PO ELEVATED BLOOD PRESSURE Last administered on 04/01/16 09:17; Admin Dose 0.1 MG; Start 03/29/16 at 18:30 Nitroglycerin (Nitroglycerin (Sl Tab) 0.4 Mg) 1 tab Q5M PRN SL ANGINA; Start at 18:30 Paroxetine HCl (Paxil) 30 mg HS PO Last administered on 04/01/16 21:18; Admin Dose 30 MG; Start 03/29/16 at 21:00 Quetiapine Fumarate (Seroquel) 300 mg HS PO Last administered on 04/01/16 20:27 ; Admin Dose 300 MG; Start 03/29/16 at 21:00 Lorazepam (Ativan) 1 mg Q4H PRN IV CONTROL WITHDRAWAL SYMPTOMS Last administered on 03/31/16 15:02; Admin Dose 1 MG; Start 03/30/16 at 09:00 Chlordiazepoxide (Librium) 10 mg TID PO Last administered on 04/02/16 12:45; Admin Dose 10 MG; Start 03/30/16 at 09:00 Quetiapine Fumarate (Seroquel) 12.5 mg QHS PO ; Start 04/01/16 at 21:00; Status Future Hold VICENTE HOLDEN Apr 02, 2016 13:01
[2016-04-02 20:00] VITALS: BP 154/84; PULSE 99; RESP 20
[2016-04-02] MEDS: PAROXETINE 10 MG TAB PO SCH (20:10)
[2016-04-02] MEDS: QUETIAPINE 100 MG TAB PO SCH (20:10)
[2016-04-02 21:24] VITALS: BP 179/88; RESP 20
[2016-04-02] MEDS: LORAZEPAM 2 MG INJ IV PRN (21:50)
[2016-04-03] MEDS: SOD CHLORIDE 0.45% 1,000 ML IV SCH (04:51)
[2016-04-03] MEDS ORDERED: PANTOPRAZOLE (EC) 40 MG TAB PO SCH (06:00)
[2016-04-03 07:54] VITALS: BP 165/87; RESP 18
[2016-04-03] MEDS: CHLORDIAZEPOXIDE 5 MG CAP PO SCH ×2 (08:03→11:53)
[2016-04-03 08:18] LABS: BASOPHILS % 0.4 % (0.0-2.0); EOSINOPHILS # 0.2 10^3/ul (0.0-0.5); EOSINOPHILS % 2.9 % (0.0-7.0); HEMATOCRIT 39.7 % (42.0-52.0); HEMOGLOBIN 13.1 g/dl (14.0-18.0); LYMPHOCYTES % 27.8 % (15.0-51.0); MEAN CORPUSCULAR HEMOGLOBIN 30.5 pg (29.0-33.0); MEAN CORPUSCULAR VOLUME 92.4 fl (82.0-101.0); MEAN PLATELET VOLUME 8.9 fl (7.4-10.4); MONOCYTE # 0.8 10^3/ul (0.3-0.9); MONOCYTES % 10.7 % (0.0-11.0); NEUTROPHIL # 4.1 10^3/ul (1.6-7.5); NEUTROPHILS % 58.2 % (39.0-77.0); PLATELET COUNT 347 10^3/UL (140-440); RED BLOOD COUNT 4.29 10^6/ul (4.70-6.10); RED CELL DISTRIBUTION WIDTH 15.3 % (11.5-14.5); UNCORRECTED WBC 7.1 10^3/ul (4.8-10.8); WHITE BLOOD COUNT 7.1 10^3/ul (4.8-10.8)
[2016-04-03 08:20] LABS: CONDITION 1; LH ANALYZER COMMENTS 1
[2016-04-03 08:35] LABS: POTASSIUM 3.8 mmol/L (3.5-5.1)
[2016-04-03 08:38] LABS: CREATININE 0.57 mg/dl (0.61-1.24)
[2016-04-03 08:39] LABS: CALCIUM 8.7 mg/dl (8.4-10.2)
[2016-04-03] MEDS: morphine 2 MG INJ IV PRN (11:53)
--- NOTE | 2016-04-03 13:20 | PN ---
Date/Time of Note Date/Time of Note DATE: 04/03/16 TIME: 13:15 Assessment/Plan VTE Prophylaxis VTE Prophylaxis Intervention: SCD's Lines/Catheters IV Catheter Type (from Nrs): Peripheral IV Urinary Cath still in place: No Assessment/Plan Assessment/Plan 66-year-old male with prior history of hypertension, stroke, depression and possible bipolar disorder who fell out of a wheelchair yesterday, status post fall with left upper extremity AC joint grade II separation, now with sling placement. 1. Left shoulder pain - again secondary to fall. He has got an AC joint separation, type II. - continue to monitor for now, continue brace. - will consult orthopedic team as well, although does not appear patient need any surgical intervention at this time. - Continue pain control medications as well. 2. History of old stroke. Again, head CT was negative after patient suffered a fall. There was an old left cerebellar hemispheric infarct noted, but again no acute findings. - Continue to monitor for now. 3. Psychiatric history. Again, history of possible schizophrenia and bipolar disorder. - Continue Seroquel and Paxil meds. We will continue those for now. 4. History of questionable ethanol abuse in the past - showing possible signs of withdrawal now. - continue low-dose Librium for now with banana bag. - Continue to monitor for signs of withdrawal. 5. Gastrointestinal prophylaxis Proton pump inhibitor. 6. Deep venous thrombosis prophylaxis. He is on sequential compression devices. We will continue to follow. Dispo: NH placement for further care and rehab/ case mgt to arrange / patient reports he lives in a [facility]. / cont supportive care. Subjective 24 Hr Interval Summary Free Text/Dictation Patient seen and examined. now off sitter able to respond appropriately to pain questions Exam/Review of Systems Vital Signs Vitals Vital Signs Date Time Temp Pulse Resp B/P Pulse Ox O2 Delivery O2 Flow Rate FiO2 04/03/16 07:54 97.7 108 18 165/87 95 04/02/16 20:00 Room Air Intake and Output 04/02/16 04/02/16 04/03/16 15:00 23:00 07:00 Intake Total 3180 ml 805 ml Output Total 1150 ml 1000 ml Balance 2030 ml -195 ml Exam GENERAL: arousable, in no acute distress presently. HEENT: Pupils equal, round, reactive to light. Extraocular muscles intact. NECK: Supple, no thyromegaly. LUNGS: Clear to auscultation bilaterally. CARDIOVASCULAR: S1, S2 heard, no rubs or gallops. ABDOMEN: Soft, nontender, nondistended. Normal bowel sounds. No rebound or guarding. MUSCULOSKELETAL: His left upper extremity: LUE sling is in place. No lower extremity edema bilaterally. NEUROLOGIC: No focal deficits. Results Result Diagram: 04/03/16 0710 04/03/16 0710 Results 24 hrs Laboratory Tests Test 04/03/16 07:10 Anion Gap 15 Basophils # 0.0 Basophils % 0.4 Blood Morphology Comment Blood Urea Nitrogen 11 Calcium Level 8.7 Carbon Dioxide Level 31 Chloride Level 100 Creatinine 0.57 L Eosinophils # 0.2 Eosinophils % 2.9 Glucose Level 113 Hematocrit 39.7 L Hemoglobin 13.1 L Lymphocytes # 2.0 Lymphocytes % 27.8 Mean Corpuscular Hemoglobin 30.5 Mean Corpuscular Hemoglobin Concent 33.0 Mean Corpuscular Volume 92.4 Mean Platelet Volume 8.9 Monocytes # 0.8 Monocytes % 10.7 Neutrophils # 4.1 Neutrophils % 58.2 Nucleated Red Blood Cells # 0.0 Nucleated Red Blood Cells % 0.0 Platelet Count 347 Potassium Level 3.8 Red Blood Count 4.29 L Red Cell Distribution Width 15.3 H Sodium Level 142 White Blood Count 7.1 Medications Medications Current Medications Ondansetron HCl (Zofran Inj) 4 mg Q6H PRN IV NAUSEA AND/OR VOMITING; Start 03/29 at 18:30 Acetaminophen (Tylenol Tab) 650 mg Q6H PRN PO PAIN LEVEL 1-3 OR FEVER; Start at 18:30 Acetaminophen/ Hydrocodone Bitart ([place] (5/325)) 1 tab Q6H PRN PO MODERATE PAIN LEVEL 4-6 Last administered on 03/31/16 21:19; Admin Dose 1 TAB; Start 03/29 at 18:30 Morphine Sulfate (morphine) 2 mg Q4H PRN IV SEVERE PAIN LEVEL 7-10 Last administered on 04/03/16 11:53; Admin Dose 2 MG; Start 03/29/16 at 18:30 Docusate Sodium (Colace) 100 mg Q12H PRN PO CONSTIPATION; Start 03/29/16 at 18: 30 Magnesium Hydroxide (Milk Of Mag) 30 ml DAILY PRN PO CONSTIPATION; Start at 18:30 Sodium Biphosphate/ Sodium Phosphate 133 ml 133 ml DAILY PRN [place] CONSTIPATION; Start 03/29/16 at 18:30 Sodium Chloride (1/2 NS) 1,000 ml @ 75 mls/hr [id number] IV Last administered on 04/02/16 18:24; Admin Dose 75 MLS/HR; Start 03/29/16 at 18:11 Hydralazine HCl (Apresoline) 10 mg Q6H PRN IV ELEVATED BLOOD PRESSURE Last administered on 03/31/16 21:30; Admin Dose 10 MG; Start 03/29/16 at 18:30 Clonidine (Catapres) 0.1 mg Q6H PRN PO ELEVATED BLOOD PRESSURE Last administered on 04/01/16 09:17; Admin Dose 0.1 MG; Start 03/29/16 at 18:30 Nitroglycerin (Nitroglycerin (Sl Tab) 0.4 Mg) 1 tab Q5M PRN SL ANGINA; Start at 18:30 Paroxetine HCl (Paxil) 30 mg HS PO Last administered on 04/02/16 20:10; Admin Dose 30 MG; Start 03/29/16 at 21:00 Quetiapine Fumarate (Seroquel) 300 mg HS PO Last administered on 04/02/16 20: 10; Admin Dose 300 MG; Start 03/29/16 at 21:00 Lorazepam (Ativan) 1 mg Q4H PRN IV CONTROL WITHDRAWAL SYMPTOMS Last administered on 04/02/16 21:50; Admin Dose 1 MG; Start 03/30/16 at 09:00 Chlordiazepoxide (Librium) 10 mg TID PO Last administered on 04/03/16 11:53; Admin Dose 10 MG; Start 03/30/16 at 09:00 Quetiapine Fumarate (Seroquel) 12.5 mg QHS PO ; Start 04/01/16 at 21:00; Status Future Hold Pantoprazole (Protonix Tab) 40 mg DAILY@06 PO Last administered on 04/03/16 05 :15; Admin Dose 40 MG; Start 04/03/16 at 06:00 VICENTE HOLDEN Apr 03, 2016 13:20
[2016-04-03] MEDS ORDERED: ACET325T33 PO (15:04)
[2016-04-03] MEDS ORDERED: QUET300T13 PO (15:04)
[2016-04-03] MEDS ORDERED: HYDR-3498 PO (15:04)
[2016-04-03] MEDS ORDERED: FAMO-18 PO (15:05)
--- NOTE | 2016-04-03 19:48 | DS ---
DATE OF ADMISSION: 03/31/2016 DATE OF DISCHARGE: 04/03/2016 PRESENTING COMPLAINT FOR ADMISSION DIAGNOSES: 1. Fall with acromioclavicular joint separation. 2. Alcohol abuse. 3. Homelessness. 4. History of bipolar disorder, schizophrenia. 5. History of subdural hematomas from multiple falls in the past. FINAL DIAGNOSES: 1. Fall with acromioclavicular separation was reviewed by orthopedic surgery and determined to be n onsurgical, and patient is to be managed conservatively with ice and arm in a sling, as well as phys ical therapy outpatient. 2. Alcohol abuse. 3. Homelessness. 4. History of bipolar disorder, schizophrenia. 5. History of subdural hematomas from multiple falls in the past. 6. The patient also was noted to have old ischemic stroke on CT of his brain. CONSULTS ON THE CASE: of Orthopedic Surgery. INTERVENTIONS: The patient had: 1. Shoulder x-ray on 03/29/2016. It grade II acromioclavicular separation with possible Hill-Sachs deformity, otherwise, unremarkable. 2. He had a CT of the cervical spine that showed multilevel degenerative changes and some neural fo raminal stenosis, but no concern for cord involvement. 3. He had a CT of the brain that showed old left cerebellar hemisphere infarct, atherosclerosis, mi croangiopathic ischemic changes, opacification of the maxillary sinuses, and old defects in the bila teral middle of the , and no intracranial hemorrhage. SHORT HOSPITALIZATION COURSE: Full details are available in the chart for review. In summary, this is a 66-year-old homeless alcoholic, who has had multiple falls while intoxicated [facility], and had a similar fall. Was brought to the emergency room for further management. He was admit paulo and we proceeded with detox, and he was supported Librium therapy, as well as Ativan. He was wo rked up in detail for his fall, and was found to have an acromioclavicular separation, type 2, on im aging. This was reviewed by ortho, and ortho determined the patient did not require surgery, but c ould have nonsurgical management. Due to his homelessness, and the fact that the patient was still severely lethargic, and he would need continued rehab, the patient is to be placed in a skilled nurs ing facility for further management. He has been accepted at this time, I believe at [facility] ASSESSMENT: The patient is stable for discharge and we will discharge him to that facility. DIET: Regular diet at this point and as tolerated. ACTIVITY: As tolerated with physical therapy. DISCHARGE MEDICATIONS: 1. Tylenol 650 p.o. q.6h. p.r.n. 2. Pepcid 20 b.i.d. 3. [place] 5/325 one tablet every 6 p.r.n. 4. Paxil 30 mg p.o. at bedtime. 5. His Seroquel was reduced from 300 to 150 mg p.o. at bedtime to reduce his fall risk. This could be up titrated as well if necessary. Overall time spent on discharge coordination has been more than half an hour. For clarification and further information, please review the patient's chart and my orders. Dictated By: VICENTE HOLDEN MD, BA/TALYA Conf#: [id number] DID#: [id number]
[2016-04-03] MEDS ORDERED: HEPARIN 5,000 UNIT/0.5 ML SYG SC SCH (21:00)
== END 2016-04-03 18:42 | DRG 563 ==
LOC: E/R 09:44 → MS1 17:53 → OBSVTOIN 03-31 10:58 → PP2 03-31 22:45
PROVIDERS: ADMIT Hospitalist; ATTEND Hospitalist
DX: S43.102A Unspecified dislocation of left acromioclavicular joint, initial encounter (principal); I67.2 Cerebral atherosclerosis; I10 Essential (primary) hypertension; Z59.0 Homelessness; F31.9 Bipolar disorder, unspecified; F20.9 Schizophrenia, unspecified; M50.30 Other cervical disc degeneration, unspecified cervical region; F10.20 Alcohol dependence, uncomplicated; Z99.3 Dependence on wheelchair; Z87.820 Personal history of traumatic brain injury; Z86.73 Personal history of transient ischemic attack (TIA), and cerebral infarction without residual deficits; W05.0XXA Fall from non-moving wheelchair, initial encounter; Z91.81 History of falling
CPT/HCPCS: 70450; 72125; 73030; 80048; 80061; 80306; 80307; 83036; 83735; 84100; 84439; 84443; 85025; 97110; 97530; C9113; G0378; J0360; J2060; J2270; J3411; J3475; J3480; J7030

== ENCOUNTER 2016-05-21 14:25 | Emergency (ER) | payer MEDICARE, OTHER ==
[~2016-05-21] VITALS: Ht 170.2 cm; Wt 86.0 kg
[~2016-05-21 14:25] MED LIST changes: +ACET325T33 PO; -BUPR300T48 PO; +FAMO-18 PO; +HYDR-3498 PO
[2016-05-21 14:33] VITALS: Ht 170.2 cm; Wt 86.0 kg
--- NOTE | 2016-05-21 14:40 | ERA ---
ER Documentation Chief Complaint Date/Time DATE: 05/21/16 TIME: 14:39 Chief Complaint Pt BIB [facility] for Psych Eval, pt agressive with staff at SNF. HPI The patient is a 66-year-old male, presenting to the ER because of aggressive behavior toward staff. He denies being aggressive to the nurse to me, auditory or visual hallucination, homicidal or suicidal ideation. He denies fever, chills, neck pain, chest pain, abdominal pain, vomiting, dysuria, diarrhea. He smokes and drinks socially Past medical history: Depression, schizophrenia, bipolar Past surgical history: None ROS All systems reviewed and are negative except as per history of present illness. Medications Home Meds Active Scripts Hydrocodone Bit-Acetaminophen (Hydrocodone Bit-APAP) 5-325MG Tablet, 1 TAB PO Q6H Y for MODERATE PAIN LEVEL 4-6 for 30 Days, TAB Prov:ADINAYAMIL RoweArsh Garay. 04/03/16 Quetiapine Fumarate* (Seroquel*) 300 Mg Tablet, 150 MG PO HS for 30 Days, TAB Prov:ADINACLARISSA RoweOLIMPIA Garay. 04/03/16 Reported Medications Diphenhydramine Hcl* (Benadryl*) Unknown Strength Cap, MG PO BID Y for ITCHING, CAP 05/21/16 Paroxetine Hcl* (Paxil*) 30 Mg Tablet, 30 MG PO QAM, TAB 12/16/13 Discontinued Scripts Famotidine* (Pepcid*) 20 Mg Tablet, 20 MG PO BID, #60 TAB Prov:ADINAYAMIL RoweArsh Garay. 04/03/16 Acetaminophen* (Tylenol*) 325 Mg Tablet, 650 MG PO Q6H Y for PAIN LEVEL 1-3 OR FEVER for 30 Days, TAB Prov:YAMIL HOLDENArsh Garay. 04/03/16 Allergies Allergies: Coded Allergies: No Known Allergy (Verified , 05/21/16) PMhx/Soc History of Surgery: Yes Anesthesia Reaction: No Hx Neurological Disorder: No Hx Respiratory Disorders: No Hx Cardiac Disorders: No Hx Psychiatric Problems: Yes (DEPRESSION) Hx Miscellaneous Medical Probl: Yes (alcohol abuse, bipolar) Hx Alcohol Use: Yes (AT TIMES PER PATIENT) Hx Substance Use: No Hx Tobacco Use: No (AT TIMES PER PATIENT) Physical Exam Vitals Vital Signs Date Time Temp Pulse Resp B/P Pulse Ox O2 Delivery O2 Flow Rate FiO2 05/21/16 18:13 98.9 68 20 140/72 96 Room Air 05/21/16 14:33 98.9 105 20 169/92 96 Physical Exam Const: No acute distress. Head: Atraumatic. Eyes: Normal Conjunctiva. ENT: Normal External Ears, Nose and Mouth. Neck: Full range of motion. No meningismus. Resp: Clear to auscultation bilaterally. Cardio: Regular rate and rhythm, no murmurs. Abd: Soft, non distended, normal bowel sounds, non tender. Skin: No petechiae or rashes. Back: No midline or flank tenderness. Ext: No cyanosis, or edema. Neur: Awake and alert. No focal deficit Psych: Normal Mood and Affect. Result Diagram: 05/21/16 1500 05/21/16 1500 Results 24 hrs Laboratory Tests Test 05/21/16 15:00 05/21/16 15:50 Acetaminophen Level < 10.0ug/ml Alanine Aminotransferase (ALT/SGPT) 21IU/L Albumin 3.7g/dl Albumin/Globulin Ratio 0.88 Alkaline Phosphatase 126IU/L Anion Gap 17 Aspartate Amino Transf (AST/SGOT) 16IU/L Basophils # 0.110^3/ul Basophils % 0.6% Blood Urea Nitrogen 12mg/dl Calcium Level 8.8mg/dl Carbon Dioxide Level 27mmol/L Chloride Level 103mmol/L Creatinine 0.53mg/dl Direct Bilirubin 0.00mg/dl Eosinophils # 0.310^3/ul Eosinophils % 2.8% Ethyl Alcohol Level < 10.0mg/dl Globulin 4.20g/dl Glucose Level 131mg/dl Hematocrit 40.1% Hemoglobin 13.7g/dl Indirect Bilirubin 0.0mg/dl Lymphocytes # 2.610^3/ul Lymphocytes % 28.7% Mean Corpuscular Hemoglobin 30.5pg Mean Corpuscular Hemoglobin Concent 34.2g/dl Mean Corpuscular Volume 89.3fl Mean Platelet Volume 11.7fl Monocytes # 0.710^3/ul Monocytes % 7.4% Neutrophils # 5.310^3/ul Neutrophils % 60.2% Nucleated Red Blood Cells # 0.010^3/ul Nucleated Red Blood Cells % 0.0/100WBC Platelet Count 23248^3/UL Potassium Level 3.9mmol/L Red Blood Count 4.4910^6/ul Red Cell Distribution Width 12.8% Salicylates Level < 1.0mg/dl Sodium Level 143mmol/L Thyroid Stimulating Hormone (TSH) 0.562MIU/L Total Bilirubin 0.0mg/dl Total Protein 7.9g/dl White Blood Count 8.910^3/ul Urine Amphetamines Screen Negative Urine Barbiturates Negative Urine Benzodiazepines Screen Negative Urine Bilirubin NEGATIVE Urine Cannabinoids Negative Urine Clarity CLEAR Urine Cocaine Screen Negative Urine Color LT. YELLOW Urine Glucose NEGATIVE% Urine Hemoglobin NEGATIVE Urine Ketones NEGATIVE Urine Leukocyte Esterase NEGATIVE Urine Nitrite NEGATIVE Urine Opiates Screen Positive Urine Specific [place] 1.010 Urine Total Protein NEGATIVE Urine Urobilinogen 0.2 E.U./dL Urine pH 7.0 Procedures/MDM MEDICAL MAKING DECISION: The patient is a 66-year-old male, presenting with depression. He was evaluated by telepsychiatrist who did not think the patient is holdable. The differential diagnoses considered include but are not limited to anxiety attack, panic attack, decompensated psychiatric illness Departure Diagnosis: Primary Impression: Depression Condition: Good Comments I discussed the findings with the patient. I advised the patient to follow-up with the primary physician in about 1-2 days, sooner if needed and return if any concern. CHATA BUSTILLOS MD May 21, 2016 14:40
[2016-05-21 15:09] LABS: ADD SCAN DIFF NO
[2016-05-21 15:16] LABS: BASOPHIL # 0.1 10^3/ul (0.0-0.1); BASOPHILS % 0.6 % (0.0-2.0); EOSINOPHILS # 0.3 10^3/ul (0.0-0.5); EOSINOPHILS % 2.8 % (0.0-7.0); HEMATOCRIT 40.1 % (42.0-52.0); HEMOGLOBIN 13.7 g/dl (14.0-18.0); LYMPHOCYTES # 2.6 10^3/ul (0.8-2.9); LYMPHOCYTES % 28.7 % (15.0-51.0); MEAN CORPUSCULAR HEMOGLOBIN 30.5 pg (29.0-33.0); MEAN CORPUSCULAR HGB CONC 34.2 g/dl (32.0-37.0); MEAN CORPUSCULAR VOLUME 89.3 fl (82.0-101.0); MEAN PLATELET VOLUME 11.7 fl (7.4-10.4); MONOCYTE # 0.7 10^3/ul (0.3-0.9); MONOCYTES % 7.4 % (0.0-11.0); NEUTROPHIL # 5.3 10^3/ul (1.6-7.5); NEUTROPHILS % 60.2 % (39.0-77.0); PLATELET COUNT 191 10^3/UL (140-415); RED BLOOD COUNT 4.49 10^6/ul (4.70-6.10); RED CELL DISTRIBUTION WIDTH 12.8 % (11.5-14.5); WHITE BLOOD COUNT 8.9 10^3/ul (4.8-10.8)
[2016-05-21 15:36] LABS: ALBUMIN 3.7 g/dl (3.3-4.9)
[2016-05-21 15:37] LABS: CHLORIDE 103 mmol/L (97-110); POTASSIUM 3.9 mmol/L (3.5-5.1); SODIUM 143 mmol/L (135-144)
[2016-05-21 15:39] LABS: ALBUMIN/GLOBULIN RATIO 0.88; ALKALINE PHOSPHATASE 126 IU/L (42-121); ANION GAP 17 (8-16); ASPARTATE AMINO TRANSFERASE 16 IU/L (15-46); CARBON DIOXIDE 27 mmol/L (21-31); CREATININE 0.53 mg/dl (0.61-1.24); TOTAL PROTEIN 7.9 g/dl (6.1-8.1)
[2016-05-21 15:40] LABS: ALANINE AMINOTRANSFERASE 21 IU/L (13-69); BLOOD UREA NITROGEN 12 mg/dl (7-20); CALCIUM 8.8 mg/dl (8.4-10.2); GLUCOSE 131 mg/dl (70-220)
[2016-05-21 15:55] LABS: ACETAMINOPHEN < 10.0 ug/ml (10.0-30.0); ETHANOL < 10.0 mg/dl; SALICYLATE < 1.0 mg/dl (5.0-30.0)
[2016-05-21 16:11] LABS: ADD UMIC NO; URINE BILIRUBIN (Dip) NEGATIVE (NEGATIVE); URINE BLOOD (Dip) NEGATIVE (NEGATIVE); URINE COLOR LT. YELLOW (YELLOW); URINE GLUCOSE (Dip) NEGATIVE (NEGATIVE); URINE KETONES (Dip) NEGATIVE (NEGATIVE); URINE LEUKOCYTE ESTERASE (Dip) NEGATIVE (NEGATIVE); URINE NITRITE (Dip) NEGATIVE (NEGATIVE); URINE TOTAL PROTEIN (Dip) NEGATIVE (NEGATIVE); URINE UROBILINOGEN (Dip) 0.2 E.U./dL (0.1-1.0)
[2016-05-21 16:26] LABS: BARBITURATES Negative (NEGATIVE); BENZODIAZEPINES Negative (NEGATIVE); OPIATES Positive (NEGATIVE)
[2016-05-21 16:30] LABS: CANNABINOIDS Negative (NEGATIVE)
[2016-05-21 16:43] LABS: COCAINE Negative (NEGATIVE)
[2016-05-21] MEDS ORDERED: BEN25 PO (16:48)
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
[2016-05-21 18:13] VITALS: BP 140/72; PULSE 68; RESP 20; TEMP 98.9
== END 2016-05-21 18:14 | disposition home or self-care (01) ==
LOC: E/R 14:25
DX: F32.9 Major depressive disorder, single episode, unspecified (principal)
CPT/HCPCS: 80053; 80306; 80307; 81003; 84443; 85025; 99283